=== PATIENT | male | born 1990 | race African-American/Black ===

== ENCOUNTER 2017-06-27 14:19 | Emergency (ER) | payer OTHER ==
[~2017-06-27] VITALS: Ht 175.3 cm; Wt 110.3 kg
[~2017-06-27 14:19] MED LIST: FLEXERIL10 MG PO; MOTRIN600 MG PO; NAPROXEN500 MG PO; TORADOL10 MG PO; VALIUM2 MG PO
[2017-06-27 15:13] LABS: HEMATOCRIT 40.9 % (38.0-50.0); MCH 27.2 PG (29.0-34.0); MCHC 35.5 G/DL (30.0-36.0); MCV 76.7 FL (86-99); MEAN PLAT.VOLUME 10.6 uM^3 (9.0-12.4); PLATELET COUNT 265 K/uL (156-360); RBC DIS.WIDTH-CV 17.3 % (11.8-14.6); RBC DIS.WIDTH-SD 46.4 % (39-53); RED BLOOD COUNT 5.33 M/uL (4.00-5.50); WHITE BLOOD COUNT 9.6 K/uL (4.1-10.2)
[2017-06-27 15:24] LABS: CHLORIDE 99 mEq/L (99-109); POTASSIUM 3.7 mEq/L (3.7-5.4); SODIUM 135 mEq/L (136-147)
[2017-06-27 15:26] LABS: GLUCOSE 74 mg/dL (70-99)
[2017-06-27 15:27] LABS: ANION GAP 11 MEQ/L (2-14)
[2017-06-27 15:28] LABS: TOTAL BILIRUBIN 2.1 mg/dL (0.0-1.0)
[2017-06-27 15:30] LABS: ALKALINE PHOSPHATASE 79 IU/L (3-129); GFR ESTIMATE (CALCULATED) > 59 mL/min/
[2017-06-27 15:31] LABS: UREA NITROGEN (BUN) 9 mg/dL (9-23)
[2017-06-27 15:35] LABS: TROP-I INTERPRETATION NEGATIVE; TROPONIN-I 0.02 ng/mL (0.0-0.30)
[2017-06-27] MEDS ORDERED: ZITHROMAX500 MG PO (16:05)
[2017-06-27 16:14] VITALS: BP 143/72
== END 2017-06-27 16:15 | disposition home or self-care (01) ==
LOC: EME 14:19
PROVIDERS: Nurse Practitioner Family
DX: J02.0 Streptococcal pharyngitis (principal); R74.8 Abnormal levels of other serum enzymes; R07.89 Other chest pain; J45.909 Unspecified asthma, uncomplicated; Z82.49 Family history of ischemic heart disease and other diseases of the circulatory system; Z88.0 Allergy status to penicillin
CPT/HCPCS: 80053; 84484; 85027; 87651 90; 93005; 99281; 99285

== ENCOUNTER 2018-04-13 14:17 | Emergency (ER) | payer BC ==
[~2018-04-13] VITALS: Ht 180.3 cm; Wt 106.2 kg
[~2018-04-13 14:17] MED LIST changes: +ZITHROMAX500 MG PO
[2018-04-13] MEDS ORDERED: TRIAMCINOLONE A15 G2 TP (17:01)
[2018-04-13 17:16] VITALS: BP 142/64
== END 2018-04-13 17:13 | disposition home or self-care (01) ==
LOC: EME 14:17
DX: J02.9 Acute pharyngitis, unspecified (principal); L20.9 Atopic dermatitis, unspecified; J45.909 Unspecified asthma, uncomplicated; Z88.0 Allergy status to penicillin
CPT/HCPCS: 87081; 87651 90; 99281; 99284